=== PATIENT | male | born 1980 | race Caucasian/White ===

== ENCOUNTER → 2022-02-15 | Outpatient (CLI) | payer BC ==
--- NOTE | 2022-02-15 07:50 | US ---
EXAMINATION TYPE: US abdomen complete DATE OF EXAM: 02/15/2022 COMPARISON: NONE CLINICAL HISTORY: R10.9 ABD PAIN. Right side pain when he bends over. No prior surgeries. TECHNIQUE: Multiple sonographic images of the abdomen are obtained. FINDINGS: EXAM MEASUREMENTS: Liver Length: 16.3 cm Gallbladder Wall: 0.1 cm CBD: 0.3 cm Spleen: 13.7 cm Right Kidney: 10.9 x 5.4 x 5.3 cm Left Kidney: 10.9 x 5.2 x 5.9 cm Pancreas: Echogenic in appearance, limited visualization of tail Liver: wnl Gallbladder: No stones or wall thickening visualized Evidence for sonographic Goodwin's sign: neg CBD: Limited visualization Spleen: Enlarged in size Right Kidney: No hydronephrosis or masses seen Left Kidney: No hydronephrosis or masses seen Upper IVC: wnl Abd Aorta: Mid portion obscured by overlying bowel gas. No AAA visualized at portions seen. The visualized liver is homogenous. The intrahepatic portion of the IVC and visualized proximal or d istal abdominal aorta are within normal limits. There is no evidence of shadowing mobile cholelithia sis. Common bile duct is not dilated. The visualized portions of the pancreas are homogenous. The spleen is mildly enlarged. Kidneys are symmetric and free of hydronephrosis. No renal lesions are s een. IMPRESSION: Suboptimal study. No acute findings are evident. Mild splenomegaly seen which may warrant further clinical workup.
== END | disposition home or self-care (01) ==
LOC: RADUSWWP 07:00
PROVIDERS: ATTEND Family Medicine
DX: R16.1 Splenomegaly, not elsewhere classified (principal); R10.9 Unspecified abdominal pain
CPT/HCPCS: 76700